=== PATIENT | male | born 1960 | race Caucasian/White ===

== ENCOUNTER 2016-08-31 10:23 | Emergency (ER) | payer MEDICAID, OTHER ==
[~2016-08-31] VITALS: Ht 172.7 cm; Wt 55.0 kg
[~2016-08-31 10:23] MED LIST: NO HOME MEDICATION; SUCR1TAB; omprazole
[2016-08-31 10:25] VITALS: BP 157/88
== END 2016-08-31 16:55 | disposition left against medical advice (07) ==
LOC: ER 16:52
DX: M54.9 Dorsalgia, unspecified (principal); Z53.21 Procedure and treatment not carried out due to patient leaving prior to being seen by health care provider

== ENCOUNTER 2017-03-12 06:39 | Emergency (ER) | payer MEDICAID, OTHER ==
[~2017-03-12] VITALS: Ht 175.3 cm; Wt 61.0 kg
[2017-03-12] MEDS ORDERED: SODIUM CHLORIDE 0.9% 1,000 ML IV ONE (06:54)
[2017-03-12] MEDS ORDERED: ONDANSETRON HCL 4MG/2ML VIAL IV STA (06:54)
[2017-03-12] MEDS ORDERED: FAMOTIDINE 20MG/2ML VIAL IV STA (06:54)
[2017-03-12 07:16] LABS: BASOPHILS % 0.3 % (0.0-2.0); EOSINOPHILS % 0.3 % (0.0-5.0); HEMATOCRIT. 34.8 % (42.0-52.0); HEMOGLOBIN. 11.7 g/dL (14.0-18.0); LYMPHOCYTES % 11.1 % (20.0-50.0); MEAN CORPUSCULAR HEMOGLOBIN 31.5 pg (28.0-32.0); MEAN CORPUSCULAR VOLUME 93.5 fL (80.0-94.0); MEAN PLATELET VOLUME 7.7 fl (7.4-10.4); MONOCYTES % 8.3 % (2.0-8.0); PLATELET 77 x1000/uL (130-400); RED BLOOD CELL COUNT 3.72 mill/uL (4.7-6.1); RED CELL DISTRIBUTION WIDTH 16.1 % (11.6-14.6)
[2017-03-12 07:25] LABS: INR 1.1; PARTIAL THROMBOPLASTIN TIME 22.9 sec (23.4-31.0); PROTHROMBIN TIME 11.9 sec (9.4-11.6)
[2017-03-12 07:54] LABS: CARBON DIOXIDE 21 mEq/L (21-32); CHLORIDE 103 mEq/L (98-107); CREATINE KINASE 268 IU/L (39-308); CREATINE KINASE MB FRACTION 2.2 ng/mL (0.5-3.6); ETHANOL BLOOD 25 mg/dL; TROPONIN I < 0.02 ng/mL (0.00-0.04)
[2017-03-12 10:36] LABS: CLARITY URINE CLEAR (CLEAR); COLOR URINE YELLOW (YELLOW); KETONES URINE NEGATIVE (NEGATIVE); LEUKOCYTE ESTERASE URINE NEGATIVE (NEGATIVE); NITRITE URINE NEGATIVE (NEGATIVE); OCCULT BLOOD URINE 1+ (NEGATIVE); PH URINE 7.5 (4.5-8.0); PROTEIN URINE TRACE (NEGATIVE); SPECIFIC GRAVITY URINE 1.012 (1.005-1.030); UROBILINOGEN URINE 0.2 E.U./dL (0.2-1.0)
[2017-03-12 11:31] LABS: *AMPHETAMINES SCREEN URINE NEGATIVE (NEGATIVE); *BARBITURATES SCREEN URINE NEGATIVE (NEGATIVE); *BENZODIAZEPINES SCREEN URINE NEGATIVE (NEGATIVE); *COCAINE SCREEN URINE NEGATIVE (NEGATIVE); CANNABINOID URINE SCREEN NEGATIVE (NEGATIVE); METHADONE URINE SCREEN NEGATIVE (NEGATIVE); OPIATES URINE SCREEN NEGATIVE (NEGATIVE); PHENCYCLIDINE URINE SCREEN NEGATIVE (NEGATIVE)
[2017-03-12 12:25] VITALS: BP 132/70
[2017-03-12] MEDS ORDERED: LOSA1TAB40 PO (23:29)
[2017-03-12] MEDS ORDERED: HYDR-3511 PO (23:29)
[2017-03-12] MEDS ORDERED: METR250T PO (23:29)
[2017-03-12] MEDS ORDERED: LEVO500T2 PO (23:29)
[2017-03-12] MEDS ORDERED: ONDA4TAB5 PO (23:29)
[2017-03-12] MEDS ORDERED: METF500T4 PO (23:29)
[2017-03-13] MEDS ORDERED: OMEP20CA10 PO (01:09)
[2017-03-15] MEDS ORDERED: LEVO500T2 PO (09:08)
[2017-03-15] MEDS ORDERED: LACT10SO7 PO (09:08)
== END 2017-03-12 12:29 | disposition home or self-care (01) ==
LOC: ER 06:52
DX: K80.70 Calculus of gallbladder and bile duct without cholecystitis without obstruction (principal); F10.129 Alcohol abuse with intoxication, unspecified; I10 Essential (primary) hypertension; R94.5 Abnormal results of liver function studies; Y90.0 Blood alcohol level of less than 20 mg/100 ml
CPT/HCPCS: 36415; 71045; 76705; 80053; 80305; 81001; 82550; 82553; 83690; 84484; 85025; 85610; 85730; 86850; 86900; 86901; 93005; 96361; 96374; 96375; 99285; G0482; J2405; J3490; J7030; Z7610

== ENCOUNTER 2018-01-20 13:21 | Emergency (ER) | payer MEDICAID ==
[~2018-01-20] VITALS: Ht 175.3 cm; Wt 60.5 kg
[~2018-01-20 13:21] MED LIST changes: +HYDR-3511 PO; +LACT10SO7 PO; +LEVO500T2 PO; +LOSA1TAB40 PO; +METF-414 PO; -NO HOME MEDICATION; +OMEP20CA10 PO; +ONDA4TAB5 PO; -omprazole
[2018-01-20 13:38] VITALS: BP 146/95
== END 2018-01-20 15:57 | disposition left against medical advice (07) ==
LOC: ER 13:21
DX: M54.9 Dorsalgia, unspecified (principal); Z53.21 Procedure and treatment not carried out due to patient leaving prior to being seen by health care provider

== ENCOUNTER 2018-05-24 15:53 | Inpatient (IN) | payer MEDICAID ==
[~2018-05-24] VITALS: Ht 175.3 cm; Wt 65.8 kg
[2018-05-24] MEDS ORDERED: PANTOPRAZOLE SODIUM 40 MG/VIAL IV STA (20:09)
[2018-05-24] MEDS ORDERED: SODIUM CHLORIDE 0.9% 1,000 ML IV ONE (20:09)
[2018-05-24 20:53] LABS: BASOPHILS % 0.8 % (0.0-2.0); EOSINOPHILS % 2.2 % (0.0-5.0); HEMATOCRIT. 43.5 % (42.0-52.0); HEMOGLOBIN. 15.3 g/dL (14.0-18.0); MEAN CORPUSCULAR HEMOGLOBIN 34.8 pg (28.0-32.0); MEAN PLATELET VOLUME 8.4 fl (7.4-10.4); MONOCYTES % 6.9 % (2.0-8.0); NEUTROPHILS % 56.1 % (40.0-76.0); PLATELET 155 x1000/uL (130-400); RED CELL DISTRIBUTION WIDTH 14.2 % (11.6-14.6)
[2018-05-24 20:57] LABS: CHLORIDE 104 mEq/L (98-107)
[2018-05-24] MEDS ORDERED: ONDANSETRON HCL 4MG/2ML INJ IV ONE (21:00)
[2018-05-24 21:01] LABS: INR 1.1; PARTIAL THROMBOPLASTIN TIME 28.8 sec (23.4-31.0); PROTHROMBIN TIME 11.7 sec (9.6-11.0)
[2018-05-24 21:12] LABS: ETHANOL BLOOD 396 mg/dL
[2018-05-24 21:24] LABS: CLARITY URINE CLEAR (CLEAR); COLOR URINE YELLOW (YELLOW); KETONES URINE NEGATIVE (NEGATIVE); LEUKOCYTE ESTERASE URINE NEGATIVE (NEGATIVE); NITRITE URINE NEGATIVE (NEGATIVE); OCCULT BLOOD URINE 1+ (NEGATIVE); PROTEIN URINE 1+ (NEGATIVE); SPECIFIC GRAVITY URINE 1.006 (1.005-1.030); UROBILINOGEN URINE 0.2 E.U./dL (0.2-1.0)
[2018-05-24 21:36] LABS: *BARBITURATES SCREEN URINE NEGATIVE (NEGATIVE); *BENZODIAZEPINES SCREEN URINE NEGATIVE (NEGATIVE); *COCAINE SCREEN URINE NEGATIVE (NEGATIVE)
[2018-05-24 21:37] LABS: *AMPHETAMINES SCREEN URINE NEGATIVE (NEGATIVE); CANNABINOID URINE SCREEN NEGATIVE (NEGATIVE); METHADONE URINE SCREEN NEGATIVE (NEGATIVE); OPIATES URINE SCREEN NEGATIVE (NEGATIVE); PHENCYCLIDINE URINE SCREEN NEGATIVE (NEGATIVE)
[2018-05-24 23:00] VITALS: BP 160/100
[2018-05-25] VITALS: BP_SYST 128; BP_SYST 160; BP_DIAS 100; BP_DIAS 83
[2018-05-25] MEDS ORDERED: CLONIDINE 0.1MG TABLET PO PRN (00:30)
[2018-05-25] MEDS ORDERED: ONDANSETRON HCL 4MG/2ML INJ IV PRN (00:30)
[2018-05-25] MEDS ORDERED: HYDROCODONE/ACETAMINOPHEN 5/325MG TABLET PO PRN (00:30)
[2018-05-25] MEDS ORDERED: [UNRECOGNIZED DRUG - REMARK] IV SCH ×4 (01:00)
[2018-05-25] MEDS: LACTULOSE 20G/30ML UDC PO SCH ×4 (02:09→17:20)
[2018-05-25 04:00] VITALS: BP 129/87
[2018-05-25 06:29] LABS: EOSINOPHILS % 3.9 % (0.0-5.0); HEMATOCRIT. 40.2 % (42.0-52.0); HEMOGLOBIN. 13.9 g/dL (14.0-18.0); LYMPHOCYTES % 34.6 % (20.0-50.0); MEAN CORPUSCULAR HEMOGLOBIN 34.2 pg (28.0-32.0); MEAN CORPUSCULAR VOLUME 98.8 fL (80.0-94.0); MEAN PLATELET VOLUME 8.7 fl (7.4-10.4); MONOCYTES % 7.6 % (2.0-8.0); NEUTROPHILS % 52.9 % (40.0-76.0); PLATELET 105 x1000/uL (130-400); RED BLOOD CELL COUNT 4.07 mill/uL (4.7-6.1); RED CELL DISTRIBUTION WIDTH 14.1 % (11.6-14.6)
[2018-05-25] MEDS: PANTOPRAZOLE 40MG DR TABLET PO SCH ×2 (06:56→09:31)
[2018-05-25 07:13] LABS: CHLORIDE 105 mEq/L (98-107)
[2018-05-25 08:00] VITALS: BP 137/85
[2018-05-25] MEDS ORDERED: POTASSIUM CHLORIDE 20MEQ TABLET SR PO SCH (09:00)
[2018-05-25 12:00] VITALS: BP 137/81
[2018-05-25 16:00] VITALS: BP 145/90
[2018-05-25] MEDS: [UNRECOGNIZED DRUG - REMARK] IV SCH ×4 (17:20)
[2018-05-25 18:02] LABS: HEMATOCRIT 40.1 % (42.0-52.0); HEMOGLOBIN 13.8 g/dL (14.0-18.0)
[2018-05-25 19:54] LABS: TOTAL IRON BINDING CAPACITY 304 ug/dL (250-450)
[2018-05-25 20:00] VITALS: BP 146/87
[2018-05-26] VITALS: BP 152/85
[2018-05-26 04:00] VITALS: BP 137/89
[2018-05-26 07:25] LABS: BASOPHILS % 0.6 % (0.0-2.0); EOSINOPHILS % 3.9 % (0.0-5.0); HEMATOCRIT. 40.9 % (42.0-52.0); HEMOGLOBIN. 13.9 g/dL (14.0-18.0); LYMPHOCYTES % 19.3 % (20.0-50.0); MEAN CORPUSCULAR HEMOGLOBIN 33.7 pg (28.0-32.0); MEAN CORPUSCULAR VOLUME 98.9 fL (80.0-94.0); MEAN PLATELET VOLUME 9.2 fl (7.4-10.4); MONOCYTES % 7.7 % (2.0-8.0); NEUTROPHILS % 68.5 % (40.0-76.0); PLATELET 82 x1000/uL (130-400); RED BLOOD CELL COUNT 4.13 mill/uL (4.7-6.1); RED CELL DISTRIBUTION WIDTH 13.6 % (11.6-14.6)
[2018-05-26 08:00] VITALS: BP 131/80
[2018-05-26 08:06] LABS: CHLORIDE 99 mEq/L (98-107)
[2018-05-26] MEDS: LACTULOSE 20G/30ML UDC PO SCH ×3 (09:37→17:30)
[2018-05-26 12:00] VITALS: BP 133/83
[2018-05-26 16:00] VITALS: BP 125/85
[2018-05-26] MEDS: [UNRECOGNIZED DRUG - REMARK] IV SCH ×4 (17:31)
[2018-05-26] MEDS ORDERED: POTASSIUM CHLORIDE 20MEQ TABLET SR PO SCH (18:00)
[2018-05-26] MEDS ORDERED: PROT40 MT (19:42)
[2018-05-26] MEDS ORDERED: FOLI0.4T2 MT (19:43)
[2018-05-26 19:44] VITALS: BP 134/77
== END 2018-05-26 20:05 | disposition home or self-care (01) | DRG 816 ==
LOC: ER 15:53 → 6EST 20:52 → EDBEDREQ 20:54 → EDBEDREQTM 20:54 → ENRESERV 21:02 → EDBEDREQTM 21:02 → EDBEDREQSVC 21:02 → CANRESERV 21:02 → ENRESERV 21:47
PROVIDERS: ADMIT Internal Medicine; ATTEND Internal Medicine
DX: T51.91XA Toxic effect of unspecified alcohol, accidental (unintentional), initial encounter (principal); K74.60 Unspecified cirrhosis of liver; K92.2 Gastrointestinal hemorrhage, unspecified; F10.129 Alcohol abuse with intoxication, unspecified; G89.29 Other chronic pain; Y90.8 Blood alcohol level of 240 mg/100 ml or more; E11.9 Type 2 diabetes mellitus without complications; F17.200 Nicotine dependence, unspecified, uncomplicated; I10 Essential (primary) hypertension; K31.89 Other diseases of stomach and duodenum; Z87.19 Personal history of other diseases of the digestive system; M54.5 Low back pain; Y92.89 Other specified places as the place of occurrence of the external cause; Z79.84 Long term (current) use of oral hypoglycemic drugs
CPT/HCPCS: 36415; 80048; 80305; 80320; 82140; 82270; 83540; 83550; 83735; 83880; 84484; 85014; 85018; 86850; 86900; 93005; 93970; 96374; 96375; 97161; 99285; C9113; J2405; J3411; J3490; J7030; J7070; G0480

== ENCOUNTER 2018-12-19 13:59 | Emergency (ER) | payer MEDICARE, MEDICAID ==
[~2018-12-19] VITALS: Ht 175.3 cm; Wt 70.0 kg
[~2018-12-19 13:59] MED LIST changes: +FOLI0.4T2 MT; -HYDR-3511 PO; -LACT10SO7 PO; -LEVO500T2 PO; -LOSA1TAB40 PO; -METF-414 PO; -OMEP20CA10 PO; -ONDA4TAB5 PO; +PROT40 MT; -SUCR1TAB
[2018-12-19 14:04] VITALS: BP 147/90
== END 2018-12-19 17:51 | disposition left against medical advice (07) ==
LOC: ER 13:59
DX: Z53.21 Procedure and treatment not carried out due to patient leaving prior to being seen by health care provider (principal)

== ENCOUNTER 2018-12-30 13:20 | Emergency (ER) | payer MEDICARE, MEDICAID ==
[~2018-12-30] VITALS: Ht 167.6 cm; Wt 55.0 kg
[2018-12-30 16:01] VITALS: BP 117/64
[2018-12-30] MEDS ORDERED: IBUPROFEN 600MG TABLET PO ONE (16:30)
== END 2018-12-30 17:39 | disposition left against medical advice (07) ==
LOC: ER 13:20
DX: L97.528 Non-pressure chronic ulcer of other part of left foot with other specified severity (principal); L97.518 Non-pressure chronic ulcer of other part of right foot with other specified severity
CPT/HCPCS: 82962; 99281; 99282